=== PATIENT | male | born 1990 | race Caucasian/White ===

== ENCOUNTER → 2021-05-10 | Outpatient (CLI) | payer BC ==
--- NOTE | 2021-05-10 13:28 | RAD ---
EXAM: 3 views of the left elbow DATE: 05/10/2021 1:08 PM INDICATION: Reason: HIT LT ELBOW ON HARD OBJECT / Spl. Instructions: / History: COMPARISON: No Prior FINDINGS: No elbow joint effusion. No acute fracture or dislocation. No significant soft tissue swelling. IMPRESSION: No acute fracture or dislocation. Electronically signed by: Abbe Alarcon MD (05/10/2021 1:26 PM) [id number]
== END ==
LOC: RAD 12:35
PROVIDERS: ATTEND Physician Assistant
DX: M25.522 Pain in left elbow (principal); M77.12 Lateral epicondylitis, left elbow
CPT/HCPCS: 73080